=== PATIENT | female | born 1960 | race Caucasian/White ===

== ENCOUNTER → 2021-03-21 | Outpatient (CLI) | payer OTHER | LOC: HEART 5 14:56 | DX: R06.02 Shortness of breath (principal); I08.3 Combined rheumatic disorders of mitral, aortic and tricuspid valves | CPT/HCPCS: 93306 ==

== ENCOUNTER → 2021-08-28 | Outpatient (CLI) | payer OTHER ==
[2021-08-28 15:47] LABS: HEMOGLOBIN 13.7 gm/dl (12.3-15.3); RED BLOOD COUNT 4.65 M/UL (4.00-5.10); WHITE BLOOD COUNT 9.7 K/UL (4.5-11.0)
[2021-08-28 15:57] LABS: BUN/CREATININE RATIO 14 (0-10)
[2021-08-29 08:16] LABS: VITAMIN D, 25-HYDROXY 21.2 ng/mL (30.0-100.0)
== END ==
LOC: LAB 14:44
PROVIDERS: Nurse Practitioner Family
DX: K21.9 Gastro-esophageal reflux disease without esophagitis (principal)
CPT/HCPCS: 36415; 80053; 80061; 82607; 82746; 83036; 83540; 83550; 83690; 84439; 84443; 84550; 85025

== ENCOUNTER → 2022-02-11 | Outpatient (CLI) | payer OTHER | LOC: CT 09:15 | DX: R10.13 Epigastric pain (principal); K76.0 Fatty (change of) liver, not elsewhere classified; K44.9 Diaphragmatic hernia without obstruction or gangrene | CPT/HCPCS: 36415; 74160; 82565; 84520; Q9967 ==